=== PATIENT | male | born 1950 | race Asian ===

== ENCOUNTER 2025-04-17 23:54 | Emergency (ER) | payer MEDICARE, SELFPAY ==
--- NOTE | 2025-04-18 00:06 | EKG_ITS ---
[facility] Test Date: 2025-04-18 Pat Name: EDER SMYTH Department: Room: - Gender: Male Instrument/Control Technician: : 1950 Requested By: ED Temporary Provider Order Number: [id number] Reading MD: ED Temporary Provider Measurements Intervals [place] Rate: 80 P: 24 AR: 183 QRS: 18 QRSD: 95 T: 17 QT: 374 QTc: 434 Interpretive Statements SINUS RHYTHM No previous ECG available for comparison /store/S0/[id number]/ecg/[id number].pdf
[2025-04-18 00:15] VITALS: BP 164/83; PULSE 74; RESP 18; TEMP 36.6; O2SAT 98; BMI 31.6
--- NOTE | 2025-04-18 00:17 | EDNOTE_ITS ---
ED Chest Pain RME/HPI General Chief Complaint: Chest Pain Stated Complaint: RIGHT CHEST PAIN Time Seen by Provider: 04/18/25 00:17 Source: patient Arrival date/time: 04/17/25 23:54 Mode of arrival: ambulatory RME / HPI RME / HPI narrative: Mr. Harrison is a 74-year-old male with past medical history of type 2 diabetes mellitus, BPH, hypertension and hyperlipidemia who presented to [facility] with a chief complaint of right upper quadrant pain which started after dinner tonight, patient reported that he ate tuna hamburgers tonight after which his pain started complains of burning pain on the right upper quadrant and reports that he took the counter ibuprofen and his pain has not improved, reported using Pepto-Bismol as well. Does report that he underwent a gallbladd er ultrasound previously and was found to have fatty liver. Related Data Previous Rx's ?Medication ?Instructions ?Recorded famotidine 40 mg tablet 40 mg PO QDAY Gastritis 7 da ys #7 04/18/25 tabs Allergies Allergy/AdvReac Type Severity Reaction Status Date / Time No Known Allergies Allergy Verified 04/17/25 23:56 Review of Systems Review of Systems Systems Reviewed: All systems reviewed, normal except as documented Past Medical History Past Medical History Comments PMH COMMENT: PMH: Positive for type 2 diabetes mellitus, BPH, hypertension and h yperlipidemia PSHx: Unremarkable Allergies: NKA Social history: -Smoking: Denies -Alcohol Use: Positive occasional alcohol use in the past -Illicit Drug Use: Denies Family History: Unremarkable family history ED Exam Narrative Physical exam: Physical Exam General: Awake and in no acute distress. Conversational and non-toxic appearing. HEENT: Normocephalic, atraumatic, mucous membranes moist. Heart: Regular rate and rhythm, no murmurs. Lungs: Clear to auscultation with no wheezing or crackles. Abdomen: Soft, nondistended, minimal tenderness right upper quadrant, Winston sign negative, positive bowel sounds. ?No guarding or rebound tenderness. Neurologic: Alert and oriented x3, no gross neurological deficit, and patient able to move all 4 extremities. Extremities: No edema. Skin: No rash or ecchymoses. Course Quality Measures none Orders Category Date Time Status EKG (ED ONLY) *Do not use* NOW Care 04/18/25 00:07 Completed EKG (ED Only) Stat Exams 04/18/25 00:06 Draft US gall bladder Stat Exams 04/18/25 00:26 Taken Amylase Stat Lab 04/18/25 00:53 Completed CBC Stat Lab 04/18/25 00:53 Completed CMP [Comprehensive Metabolic Panel] Stat Lab 04/18/25 00:53 Completed Lactate (Lactic Acid) Stat Lab 04/18/25 00:53 Completed Magnesium Stat Lab 04/18/25 00:53 Completed Procalcitonin Stat Lab 04/18/25 00:53 Completed Troponin I Stat Lab 04/18/25 00:53 Completed Famotidine [Pepcid] Med 04/18/25 00:25 Discontinued 40 mg PO X1 ONE Lidocaine 2% Viscous [Xylocaine 2% Viscous] Med 04/18/25 00:25 Discontinued 15 ml PO X1 ONE mg Hyd/Al Hyd/Ruma Susp [Maalox Susp] Med 04/18/25 00:25 Discontinued 30 ml PO X1 ONE traMADol HCL [Ultram] Med 04/18/25 02:08 Discontinued 100 mg PO X1 ONE Vital Signs Vital signs: Vital Signs Temperature 97.9 F 04/18/25 00:15 Pulse Rate 74 04/18/25 00:15 Respiratory Rate 18 04/18/25 00:15 Blood Pressure 164/83 H 04/18/25 00:15 Pulse Oximetry (%) 98 04/18/25 00:15 Oxygen Delivery Method Room Air 04/18/25 00:15 Chest Pain MDM Narrative MDM Narrative:: #Gastritis #Right upper quadrant pain 74-year-old male with past medical history as above presented with chief complaint of right upper quadrant pain. Patient complains of burning pain in the right upper quadrant reports ibuprofen and Pepto-Bismol have not improved the pain. Patient given GI cocktail: Maalox, viscous lidocaine and famotidine 40 mg Workup: CBC: WBC 6.6, hemoglobin 12.4, hematocrit 37.7, platelet 163 CMP: Sodium 137 potassium 4.4 chloride 103 bicarb 22.1, anion gap 12, BUN 17, creatinine 1.4, GFR 53, glucose 257, osmolality 284 lactate 1.7 corrected calcium 10.2 magnesium 1.9 total bilirubin 1.2 AST 73, ALT 192, alk phos 96 troponin negative, total protein 7.5, albumin 4.4, globulin 3.1, amylase 94, Pro-Parmjit 0.17 EKG shows sinus rhythm, rate 80, QTc 434 Gallbladder ultrasound negative for gallstones, does show fatty infiltration of the liver Findings discussed with patient, patient's pain likely secondary to gastritis/bloating, reports some improvement with GI cocktail. Patient will be given tramadol prior to discharge. Will prescribe famotidine for management of gastritis Patient to follow-up with primary care physician Case discussed with Attending Physician Dr. Anabell Huynh MD Internal Medicine PGY-2 Disclaimer: This note was dictated by speech recognition. Minor errors in ballpoint pens assembler may be present due to voice recognition software. Patient data External records reviewed:: None Clinical information provided by:: patient and family Social determinants that could affect healthcare access:: none Patient has the following chronic illnesses:: As above How is presenting disease/condition affected by chronic disease/condition?: uneffected by Evaluation data The following diagnostics were reviewed and interpreted by me:: lab results, radiology exam(s) and EKG tracing(s) Lab and/or radiology exams considered but not ordered:: None Interpretation Summary: CBC: WBC 6.6, hemoglobin 12.4, hematocrit 37.7, platelet 163 CMP: Sodium 137 potassium 4.4 chloride 103 bicarb 22.1, anion gap 12, BUN 17, creatinine 1.4, GFR 53, glucose 257, osmolality 284 lactate 1.7 corrected calcium 10.2 magnesium 1.9 total bilirubin 1.2 AST 73, ALT 192, alk phos 96 troponin negative, total protein 7.5, albumin 4.4, globulin 3.1, amylase 94, Pro-Parmjit 0.17 EKG shows sinus rhythm, rate 80, QTc 434 Gallbladder ultrasound negative for gallstones, does show fatty infiltration of the liver Medications / Prescriptions Medications or Prescriptions considered but not ordered:: None Medication administrations:: Medication Administration History Discontinued Medications Al Hydrox/Mg Hydrox/Simethicone (Mg Hyd/Al Hyd/Ruma (Maalox Reg) Susp 30 Ml Udc) 30 ml PO X1 ONE Stop: 04/18/25 00:26 Last Admin: 04/18/25 01:07 Dose: 30 ml Documented By: OA Famotidine (Famotidine 20 Mg Tablet) 40 mg PO X1 ONE Stop: 04/18/25 00:26 Last Admin: 04/18/25 01:07 Dose: 40 mg Documented By: OA Lidocaine HCl (Lidocaine Viscous 2% 15 Ml Udc) 15 ml PO X1 ONE Stop: 04/18/25 00:26 Last Admin: 04/18/25 01:07 Dose: 15 ml Documented By: OA Tramadol HCl (Tramadol Hcl 50 Mg Tablet) 100 mg PO X1 ONE Stop: 04/18/25 02:09 Last Admin: 04/18/25 02:33 Dose: 100 mg Documented By: CB As above Consultations Consultation(s) initiated? (list below): No Diagnosis Chest Pain Differential Diagnosis: chest pain and biliary colic Most likely diagnosis given after review of the tests above:: Gastritis/bloating Admission Indicated Admission indicated?: not indicated Admission Request Was there a request for admission?: No Disposition Plan Disposition Plan: Discharge Discharge Attestation Discharge Attestation: The patient and all family members were given an opportunity to ask questions and understood the discharge instructions. Discharge instructions specifically effects, indications for sooner follow up or return to the emergency department, and the expected course of current diagnosis. Patient condition: Stable Discharge Plan Plan Patient Disposition: HOME (Self Care) Patient condition on transfer: Stable Prescriptions/Referrals Prescriptions/Med Rec: New famotidine 40 mg tablet 40 mg PO QDAY 7 Days Qty: 7 0RF Referrals: Simone Ramirez MD [Primary Care Provider, Family Practice] - In 1 week Problem List Clinical Impression: Gastritis, Abdominal pain Patient/Caregiver Discharge Instructions Discharge Activity: activity as tolerated Education Materials: Abdominal Pain, Understanding Gastritis, Discharge Instructions- Eating ... Additional Instructions: - You were seen in the ED today for right upper quadrant pain, we did ultrasound of your gallbladder which was negative for any gallstones, you do have fatty liver disease. We did the EKG which was negative for any signs of ischemia and your troponin negative was negative, therefore there is no suspicion of a heart attack. - Your symptoms are likely secondary to gastritis, take famotidine daily for 7 days, okay to use [id number] Maalox and Pepto-Bismol. Eat a soft bland diet, avoid spicy foods. - Take [id number] extra strength Tylenol as needed for pain management you can take up to 4 pills a day as needed. Avoid ibuprofen, Advil and Aleve. - Return to emergency department if your symptoms worsen - Follow-up with your primary care physician within 1 week to discuss all your lab and imaging findings. - You do have an JEREMIE per your labs, follow-up and repeat a renal panel with your primary care physician, we recommend drinking at least 2 to 3 L of water daily. Print Language: Indonesian Stand Alone Forms: Faith Award Info., Patient Portal Info Letter
--- NOTE | 2025-04-18 00:26 | XR_ITS ---
Examination: Abdomen sonogram, Limited Date and time of exam: April 18, 2025, 1233 hrs. Indications: Onset epigastric pain chest pain abdominal pain today. Technique: Real-time jeter scale transabdominal sonographic images of the upper abdomen obtained. Findings: Normal gallbladder. Common bile duct 0.6 cm no stones Pancreatic head 3.7 cm Liver 14.5 cm fatty infiltration Normal hepatopedal portal venous flow Patent IVC Impression: Normal gallbladder Prominent pancreatic head, clinical correlation advised, consider CT scan abdomen pelvis post intravenous contrast follow-up
[2025-04-18] MEDS: FAMOTIDINE 20 MG TABLET 40 MG PO (01:07)
[2025-04-18] MEDS: LIDOCAINE VISCOUS 2% 15 ML UDC PO (01:07)
[2025-04-18] MEDS: MG HYD/AL HYD/SIME (Maalox Reg) SUSP 30 ML UDC PO (01:07)
[2025-04-18 01:10] LABS: Basophils # (Auto) 0.1 Thou/mm3 (0.0-0.2); Basophils % (Auto) 1 % (0-2.5); Eosinophils # (Auto) 0.1 Thou/mm3 (0.0-0.5); Eosinophils % (Auto) 1 % (0-10); Hematocrit 37.7 % (41.0-53.0); Hemoglobin 12.4 g/dL (13.5-16.0); Immature Granulocytes Auto 0.05 Thou/mm3 (0.00-0.00); Lactate (Lactic Acid) 1.7 mMol/L (0.4-2.0); Lymphocytes # (Auto) 1.1 Thou/mm3 (1.0-4.8); Lymphocytes % (Auto) 16 % (10-50); Mean Corpuscular HGB Conc 32.9 g/dl (31.0-37.0); Mean Corpuscular Hemoglobin 29.5 pg (25.0-35.0); Mean Corpuscular Volume 90 fL (80-100); Monocytes # (Auto) 0.4 Thou/mm3 (0.0-0.8); Monocytes % (Auto) 6 % (0-12); Neutrophils # (Auto) 4.9 Thou/mm3 (1.8-7.7); Neutrophils % (Auto) 74 % (37-80); Nucleated Red Blood Cell # 0.00 Thou/mm3 (0.00-0.00); Nucleated Red Blood Cell % 0 /100 WBC (0); Platelet Count 163 Thou/mm3 (140-440); RDW Standard Deviation 41.6 fL (35.1-43.9); Red Blood Count 4.21 Miln/mm3 (4.50-5.90); White Blood Count 6.6 Thou/mm3 (3.8-10.6)
[2025-04-18 01:42] LABS: Alanine Aminotransferase 192 U/L (10-49); Albumin, Serum 4.4 gm/dL (3.4-4.8); Albumin/Globulin Ratio 1.4 (1.2-2.2); Alkaline Phosphatase 96 U/L (46-116); Amylase 94 U/L (30-118); Anion Gap 12 (7-16); Aspartate Amino Transferase 73 U/L (0-34); BUN/Creatinine Ratio 12 Ratio (12-20); Bilirubin,Total 1.2 mg/dL (0.3-1.2); Blood Urea Nitrogen 17 mg/dL (9-23); Calcium 10.2 mg/dL (8.3-10.6); Calcium (Corrected) 10.2 mg/dL (8.5-10.1); Carbon Dioxide 22.1 mMol/L (20.0-31.0); Chloride 103 mMol/L (98-107); Creatinine (Component) 1.4 mg/dL (0.6-1.3); Estimated Creatinine Clearance 51.6 mL/min (>60); Globulin 3.1 gm/dL (2.3-3.5); Glucose 257 mg/dL (74-106); Magnesium 1.9 mg/dL (1.6-2.6); Osmolality,Calculated 284 (275-295); Potassium 4.4 mMol/L (3.4-5.1); Procalcitonin 0.17 ng/ml (0.0-0.49); Sodium 137 mMol/L (136-145); Total Protein 7.5 gm/dL (5.7-8.2); Troponin I < 0.002 ng/mL (0.0-0.045); eGFR 53 See Note
--- NOTE | 2025-04-18 02:11 | PRELIM_ITS ---
Right upper quadrant abdominal ultrasound with Limited Doppler. April 18, 2025 at 0037 hours Clinical history: Right upper quadrant pain. No prior study is available for comparison. Findings: The liver measures 14.5 cm and demonstrates increased and heterogeneous echogenicity. No intrahepatic biliary ductal dilatation. The main portal vein is patent and demonstrates hepatopetal flow. No gallbladder calculus, wall thickening or pericholecystic fluid is demonstrated. The common bile duct is n ormal in caliber at 6 mm. The pancreas is unremarkable to the extent visualized. The inferior vena cava is patent. Impression: No evidence of cholelithiasis, wall thickening, pericholecystic fluid or biliary dilatation. Findings suggestive of liver parenchymal disease. Report Electronically Signed By: Stan Adams 04/18/2025 2:10:09 AM [EST]
[2025-04-18 02:37] VITALS: RESP 18
== END 2025-04-18 02:38 | disposition home or self-care (01) ==
PROVIDERS: Emergency Provider Emergency Medicine; PCP Family Medicine
DX: K29.70 Gastritis, unspecified, without bleeding (principal); K76.0 Fatty (change of) liver, not elsewhere classified; E11.9 Type 2 diabetes mellitus without complications; I10 Essential (primary) hypertension; E78.5 Hyperlipidemia, unspecified
CPT/HCPCS: 36415; 76705; 80053; 82150; 83605; 83735; 84145; 84484; 85025; 93005; 99283; J3490; A9270